=== PATIENT | male | born 1995 | race Caucasian/White ===

== ENCOUNTER 2017-07-27 10:05 | Day surgery (SDC) | payer OTHER ==
[~2017-07-27 10:05] MED LIST: CEFAZOLIN 2 GM/D5W RTU 2 GM/50 ML RTUPB IV PRN; SUCCINYLCHOLINE CHLORIDE INJ 200 MG/10 ML VIAL ONE
[2017-07-27 10:57] LABS: APPEARANCE,URINE CLEAR; BILIRUBIN,URINE NEGATIVE (NEGATIVE); GLUCOSE, URINE NEGATIVE (NEGATIVE); KETONES,URINE NEGATIVE (NEGATIVE); LEUKOCYTE ESTERASE,URINE NEGATIVE (NEGATIVE); NITRITE,URINE NEGATIVE (NEGATIVE); PROTEIN,URINE NEGATIVE (NEGATIVE); UROBILINOGEN,URINE NEGATIVE mg/dL (<2.0)
--- NOTE | 2017-07-27 10:58 | RADIOLOGY REPORT (SQ) ---
EXAM DESCRIPTION: CHEST SINGLE VIEW COMPLETED DATE/TIME: 07/27/2017 10:48 am REASON FOR STUDY: PREOP COMPARISON: None. EXAM PARAMETERS: NUMBER OF VIEWS: One view. TECHNIQUE: Single frontal radiographic view of the chest acquired. RADIATION DOSE: NA LIMITATIONS: None. FINDINGS: LUNGS AND PLEURA: No opacities, masses or pneumothorax. No pleural effusion. MEDIASTINUM AND HILAR STRUCTURES: No masses. Contour normal. HEART AND VASCULAR STRUCTURES: Heart normal in size. Normal vasculature. BONES: No acute findings. HARDWARE: None in the chest. OTHER: No other significant finding. IMPRESSION: NO ACUTE RADIOGRAPHIC FINDING IN THE CHEST. TECHNICAL DOCUMENTATION: JOB ID: [id number] [email or web address]- All Rights Reserved
[2017-07-27 11:02] LABS: BACTERIA,URINE 1+ /HPF; RBC,URINE 0-1 /HPF
[2017-07-27 11:34] LABS: ABSOLUTE BASOPHILS # (AUTO) 0.1 10^3/uL (0.0-0.2); ABSOLUTE EOSINOPHILS # (AUTO) 0.1 10^3/uL (0.0-0.6); ABSOLUTE LYMPHOCYTES (AUTO) 2.1 10^3/uL (0.5-4.7); ABSOLUTE MONOCYTES (AUTO) 0.5 10^3/uL (0.1-1.4); ABSOLUTE NEUT (AUTO) 4.1 10^3/uL (1.7-8.2); BASOPHILS % (AUTO) 0.9 % (0-2); EOSINOPHILS % (AUTO) 1.6 % (0-6); HEMOGLOBIN 14.1 g/dL (13.5-17.0); HGB HCT DIFFERENCE 1.3; LYMPHOCYTES % (AUTO) 30.3 % (13-45); MEAN CORPUSCULAR HEMOGLOBIN 28.2 pg (27.0-33.4); MEAN CORPUSCULAR HGB CONC 34.5 g/dL (32.0-36.0); MEAN CORPUSCULAR VOLUME 82 fl (80-97); MONOCYTES % (AUTO) 6.6 % (3-13); RED BLOOD COUNT 5.02 10^6/uL (4.35-5.55); RED CELL DISTRIBUTION WIDTH 13.5 % (11.5-14.0); SEGMENTED NEUTROPHILS % (AUTO) 60.6 % (42-78); WHITE BLOOD COUNT 6.9 10^3/uL (4.0-10.5)
[2017-07-27 11:49] LABS: ANION GAP 11 (5-19); BLOOD UREA NITROGEN 15 mg/dL (7-20); CALCIUM 9.9 mg/dL (8.4-10.2); CARBON DIOXIDE 25 mmol/L (22-30); CHLORIDE 106 mmol/L (98-107); GLUCOSE 95 mg/dL (75-110); SODIUM 141.7 mmol/L (137-145)
--- NOTE | 2017-07-27 11:54 | EKG REPORT ---
SEVERITY:- NORMAL ECG - SINUS RHYTHM : Confirmed by: Lorraine Arora 27-Jul-2017 11:53:29
[2017-07-27] MEDS ORDERED: ACETAMINOPHEN 100 ML IV ONE (12:19)
[2017-07-27] MEDS ORDERED: PROPOFOL INJ 200 MG/20 ML VIAL IV ONE (12:19)
[2017-07-27] MEDS ORDERED: MIDAZOLAM 2 MG/2 ML INJ ONE (12:19)
[2017-07-27] MEDS ORDERED: FENTANYL CITRATE INJ/PF 100 MCG/2 ML AMPUL ONE ×2 (12:19)
[2017-07-27] MEDS ORDERED: ONDANSETRON HCL INJ/PF 4 MG/2 ML SDV ONE (12:20)
[2017-07-27] MEDS ORDERED: HYDROMORPHONE HCL INJ/PF 2 MG/ML AMPULE ONE (12:20)
[2017-07-27] MEDS ORDERED: DEXMEDETOMIDINE INJ 80 MCG/20 ML VIAL IV ONE (12:34)
[2017-07-27] MEDS ORDERED: MORPHINE SULFATE 10 MG/ML INJ IV PRN ×2 (13:08→14:49)
[2017-07-27] MEDS ORDERED: DIPHENHYDRAMINE HCL 50 MG/ML VIAL IV PRN (13:08)
[2017-07-27] MEDS ORDERED: PROMETHAZINE HCL INJ 25 MG/1 ML VIAL IV PRN (13:08)
[2017-07-27] MEDS ORDERED: FENTANYL CITRATE INJ/PF 100 MCG/2 ML AMPUL IV PRN ×3 (13:08)
[2017-07-27] MEDS ORDERED: MEPERIDINE HCL/PF INJ 25 MG/1 ML DISP.SYRIN IV PRN (13:08)
[2017-07-27] MEDS: BUPIVACAINE HCL 0.5 % INJ/PF 30 ML SDV ONE ×2 (14:29→14:32)
[2017-07-27] MEDS ORDERED: OXYCODONE-ACETAMINOPHEN 5-325 MG TABLET PO PRN (14:49)
[2017-07-27] MEDS ORDERED: ONDANSETRON HCL INJ/PF 4 MG/2 ML SDV IV PRN (14:49)
--- NOTE | 2017-07-27 14:49 | PDOC DISCHARGE SUMMARY ---
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 Arsh Mendoza @ [facility] to be seen in 10-14 days or as scheduled [place]: [place]: [place]: Ice and elevate Keep splint clean/dry/intact. If your fingers become numb please unwrap the Peter wrap but leave the splint in place, if the sensation does not return within 30 minutes please return to the emergency department. May begin finger range of motion attempting to make full fist. Please use ibuprofen (Motrin or Advil) 600-800 mg every 8 hours as needed for pain or fever. You may also use acetaminophen (Tylenol) 1000 mg every 4-6 hours as needed for pain or fever. Please be aware that many medications contain acetaminophen, do not exceed a total of 1000 mg of acetaminophen every 6 hours. If ibuprofen and acetaminophen are not sufficient for your pain you may take the Percocet. Please be aware that the Percocet does contain Tylenol. Stool softener of choice when on pain medication. Prescriptions: Oxycodone HCl/Acetaminophen [Percocet 5-325 mg Tablet] 1 - 2 tab PO ASDIR PRN # 45 tablet PRN Reason: Referrals: TIM CM MD [Primary Care Provider] - Discharge Diet: As Tolerated Respiratory Treatments at Home: Deep Breathing/Coughing Discharge Activity: No Lifting Over 10 Pounds, No Lifting/Push/Pulling Report the Following to Your Physician Immediately: Fever over 101 Degrees, Unusual Bleeding, Redness, Swelling, Warmth, Increased Soreness, Numbness, Tingling Sensation
--- NOTE | 2017-07-27 15:15 | Operative Report ---
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 He had radiographs demonstrating scaphoid fracture. Subsequently CT and MRI were performed demonstrating scaphoid nonunion with avascular necrosis. At that point we discussed treatment options and postoperative prognosis. After discussing these options the joint decision was made to proceed with operative intervention. Procedure In Detail: Patient was seen and evaluated in the preoperative holding area. The LEFT upper extremity was initialized and marked. Patient received 2g of Ancef IV for bacterial prophylaxis. Patient was taken back to the operative room where transferred to the operative table and placed under general anesthesia. Once they were adequately anesthetized a nonsterile tourniquet was placed on the upper extremity. A surgical team debriefing was performed ensuring all instrumentation was available, the surgical procedure was discussed with possible concerns reviewed. The upper extremity was prepped with chlorhexidine and alcohol and draped in a sterile fashion. A timeout was done identifying correct patient, procedure and extremity everyone in attendance agree with this and verbalized no concerns. The extremity was elevated the tourniquet was inflated to 250 mmHg. Longitudinal skin incision was made just ulnar to Leona's tubercle. Blunt dissection was performed and a peripheral veins were retracted were coagulated with bipolar cautery. The extensor retinaculum was then approached and a Z incision was made in the retinaculum to expose the fourth dorsal compartment. The third dorsal compartment was opened as well distally. The EDC tendons were then retracted in a radial direction. Veins within the capsule dorsally were identified. With C-arm fluoroscopy I confirmed the appropriate trajectory of the capsular pedicle. A V-shaped capsulotomy was made in line with the capitate following the fourth extra compartmental artery to the distal radius. I then measured the appropriate size graft and 2 K wires were placed to avoid disruption of the sigmoid notch or radio carpal articular surface. Once this was confirmed with C -arm fluoroscopy 3 size of my vascularized bone graft were then cut with an with the pedicle oscillating saw using saline to avoid osteonecrosis. I carefully elevated the capsule taking special care to protect the pedicle within the capsule the fourth and final side of my bone graft was then completed with an osteotome and carefully elevated. I then turned my attention to exposure of the nonunion site. After elevating the capsule of the scapholunate ligament was under direct visualization. The nonunion site was not identified and was covered by an intact cartilage shell. Thus prior to taking down the nonunion site I proceeded with fixation of the proximal pole. The appropriate size K wire for a micro Acutrak screw was placed into the proximal pole towards the distal pole in a more volar direction. The appropriate sized screw was then measured and a 22 mm Acutrak screw implanted. However there was prominence of the screw distally and thus a 18 mm screw was placed given the fact the 20 mm was not available. This did provide good interfragmentary compression of the fracture site., With a high-speed bur and saline a small trough was made into the scaphoid along its dorsal radial direction avoiding encroachment on my Acutrak screw. Once the trough was completed any fibrous tissue was carefully removed., With the left in place a suture tack was placed into the I then placed a 2.4 mm Arthrex distal pole radially. The pedicle was then press-fit into the trough and had good stability this was further secured with my anchor. There is no evidence of pedicle impingement with wrist range of motion. To provide further stability a 0.045 K wire was placed on oscillation from the distal scaphoid into the capitate and cut below the skin. There is no evidence of intercarpal instability with range of motion. Good stability of the vascularized graft was noted with range of motion. No evidence of motion at the fracture site. The wound was then copiously irrigated with normal saline. The defect from the harvest site was filled with a thrombin sponge. The retinaculum was loosely closed with interrupted 3-0 Monocryl suture. Subcutaneous tissues were closed with 4-0 Monocryl skin was closed in a running subcuticular 4-0 Monocryl reinforced with Dermabond and Steri-Strips. 20 cc of 0.5% Marcaine without epinephrine was injected for postoperative pain control. Patient was then placed in a well-padded thumb spica splint Sponge counts, instrument counts, needle counts counts were correct. Patient was then awoken from anesthesia. Transferred from the operating room table to the operating room stretcher. There was no intraoperative complications patient tolerated procedure well stable to PACU. Postoperative plan: Patient will follow in the office in 2 weeks we will obtain radiographs at that time. Patient will be placed in a thumb spica splint. Anticipate pin removal 6 weeks postoperatively.
[2017-07-27] MEDS: FENTANYL CITRATE INJ/PF 100 MCG/2 ML AMPUL ONE ×2 (15:24→15:30)
[2017-07-27] MEDS ORDERED: PROMETHAZINE HCL INJ 25 MG/1 ML VIAL ONE (15:34)
--- NOTE | 2017-07-27 16:13 | RADIOLOGY REPORT (SQ) ---
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 FLUOROSCOPY TIME: 1 minutes 29 seconds 4 images saved to PACS. TECHNIQUE: Intra-operative images acquired during surgical procedure to evaluate progress. NUMBER OF IMAGES: 4 LIMITATIONS: None. FINDINGS: Surgical changes of the scaphoid and capitate with orthopedic appliances. IMPRESSION: IMAGE(S) OBTAINED DURING PROCEDURE. COMMENT: Quality ID [id number]: Final reports for procedures using fluoroscopy that document radiation exp osure indices, or exposure time and number of fluorographic images (if radiation exposure indices are not available) Please consult full operative report of the attending physician for description of the procedure. TECHNICAL DOCUMENTATION: JOB ID: [id number] [email or web address]- All Rights Reserved
[2017-07-27 18:15] VITALS: BP 130/87
== END 2017-07-27 18:05 | disposition home or self-care (01) ==
LOC: OROUT 10:05
PROVIDERS: ATTEND Orthopaedic Surgery
PROC: 0PSN04Z Reposition Left Carpal with Internal Fixation Device, Open Approach (ICD-10-PCS; principal; 2017-07-27 12:00)
DX: S62.032K Displaced fracture of proximal third of navicular [scaphoid] bone of left wrist, subsequent encounter for fracture with nonunion (principal); W19.XXXD Unspecified fall, subsequent encounter; M87.038 Idiopathic aseptic necrosis of left carpus; I10 Essential (primary) hypertension; G43.909 Migraine, unspecified, not intractable, without status migrainosus; Z79.899 Other long term (current) drug therapy; Z79.1 Long term (current) use of non-steroidal anti-inflammatories (NSAID); Z87.820 Personal history of traumatic brain injury; E66.9 Obesity, unspecified; Z68.38 Body mass index [BMI] 38.0-38.9, adult
CPT/HCPCS: 36415; 85025; 80048; 81001; 71010; 73110; 93005; 93010; 25440; C1769 ×3; C1713; J2250; J3010; J1170; J2550; J0330; J2405; J2704; J0690; J0131; J3490; 01830